=== PATIENT | male | born 1985 | race Caucasian/White ===

== ENCOUNTER 2016-11-21 10:19 | Emergency (ER) | payer OTHER ==
[2016-11-21 10:30] VITALS: RESP 16; TEMP 97.9
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
[2016-11-21 11:41] VITALS: BP 138/81; PULSE 68; O2SAT 98
== END 2016-11-21 11:40 | disposition home or self-care (01) ==
LOC: CED 10:19
DX: S80.11XA Contusion of right lower leg, initial encounter (principal); L03.111 Cellulitis of right axilla; W22.8XXA Striking against or struck by other objects, initial encounter
CPT/HCPCS: 93971-PO